=== PATIENT | female | born 1940 | race Caucasian/White ===

== ENCOUNTER 2021-02-07 10:29 | Outpatient (CLI) | payer MEDICARE, OTHER, SELFPAY ==
[2021-02-07 10:59] LABS: Anion Gap 9 mmol/L (8-16); Blood Urea Nitrogen 33 mg/dL (7-17); Calcium 9.6 mg/dL (8.4-10.2); Carbon Dioxide 25 mmol/L (22-30); Chloride 106 mmol/L (98-107); Estimated Glomerular Filt Rate 24; Glucose 75 mg/dL (65-105); Potassium 4.6 mmol/L (3.4-5.0); Sodium 140 mmol/L (137-145)
== END 2021-02-07 10:30 | disposition home or self-care (01) ==
LOC: ANHSURGERY 10:33
PROVIDERS: Anesthesiology; PCP Family Medicine; Visit Provider Obstetrics & Gynecology
DX: Z01.818 Encounter for other preprocedural examination (principal); I10 Essential (primary) hypertension
CPT/HCPCS: 36415; 80048

== ENCOUNTER 2021-02-12 01:25 | Day surgery (SDC) | payer MEDICARE, OTHER, SELFPAY ==
[2021-02-05 13:38] VITALS: BMI 22.8
--- NOTE | 2021-02-11 12:40 | P.PNAN_ITS ---
Anes - Initial Pre Proc Eval Procedure: Operation Date: 02/12/21 07:30 Proposed Procedures p Hysteroscopy,Dilation and Curettage - Meenu Brothers MD Date/Time: 02/11/21 12:40 Surgeon: Meenu Brothers MD Pre Op Diagnosis: post menopausal bleeding Patient Data Age: 80 Gender: F Height: 1.64 m Weight: 61.25 kg Allergies Allergy/AdvReac Type Severity Reaction Status Date / Time codeine Allergy Unknown Nausea and Verified 02/12/21 06:55 Vomiting Home Medications Medication Instructions Recorded Confirmed Type albuterol sulfate [ProAir HFA] 2 inh INHALATION PRN PRN 02/05/21 02/05/21 History aspirin [Adult Low Dose Aspirin] 81 mg PO HS 02/05/21 02/05/21 History calcium carbonate-vitamin D3 1 cap PO DAILY 02/05/21 02/05/21 History [Calcium 600 + D(3)] carbidopa-levodopa 1 tablet PO HS 02/05/21 02/05/21 History cholecalciferol (vitamin D3) 50 mcg PO DAILY 02/05/21 02/05/21 History furosemide 20 mg PO DAILY 02/05/21 02/05/21 History levothyroxine [Synthroid] 50 mcg PO DAILY 02/05/21 02/12/21 History lisinopril 40 mg PO DAILY 02/05/21 02/05/21 History abfechdqhnhf-xyuf-bpbei acid 1 tablet PO DAILY 02/05/21 02/05/21 History [Centrum Women] rosuvastatin [Crestor] 20 mg PO HS 02/05/21 02/05/21 History tramadol 100 mg PO BID 02/05/21 02/05/21 History Patient hx anesthesia problems: none Family hx anesthesia problems: none COUNT INCLUDES THE [facility] Past Medical History Medical History (Updated 02/12/21 @ 07:22 by Meenu Brothers MD) Dyspnea Hyperlipidemia Hypertension Hypothyroidism RLS (restless legs syndrome) Surgical History Surgical History (Updated 02/11/21 @ 12:40 by Sebastian Smith DO) History of cholecystectomy History of left mastectomy Social History Social History Smoking status: Never smoker Living arrangements: with family Spiritual care concerns: No Anes - Eval Final PreProcedure Day of Procedure 02/11/21 12:40 Patient weight: normal Heart: regular rate and rhythm Lungs: clear to auscultation and normal air movement Airway: Mallampati scale class III Neurological: alert and oriented Last oral intake: >/= 8 hours ASA classification: III Emergent: no Anesthetic plan: proceed Anesthesia type and monitoring: general GIVS and standard monitoring Informed Consent: The patient's anesthetic plan and its attendant risks and benefits were discussed with the patient/family/POA. Questions were solicited and answers provided to the satisfaction of the patient/family/POA.
[2021-02-12] MEDS: LACTATED RINGERS 1,000 ML 30 ML IV CONT (06:45)
[2021-02-12] MEDS: ACETAMINOPHEN 500 MG TABLET 1000 MG PO (06:47)
[2021-02-12 06:57] VITALS: BP 148/75; PULSE 90; RESP 18; TEMP 36.8; O2SAT 100
--- NOTE | 2021-02-12 07:19 | PM.IMHP ---
H&P: HPI History of Present Illness Date/Time: 02/12/21 07:19 Chief Complaint: PMB Narrative: Dionne is a 80yo with PMB, seen by me in Jul 2020, when EMB was challenging in office due to stenotic internal os. EMB was done, but only obtained endocervical cells. At that time HSC and D and C was recommended, and she finally scheduled it. . She had no further bleeding for several months, but recently returned which made her schedule procedure finally. US showed thickened endometrium with cystic changes. Review of Systems Review of Systems: All systems reviewed & are unremarkable except as noted in HPI and below PMFSH Past Medical History Medical History (Updated 02/12/21 @ 07:22 by Meenu Brothers MD) Dyspnea Hyperlipidemia Hypertension Hypothyroidism RLS (restless legs syndrome) Surgical History Surgical History (Updated 02/11/21 @ 12:40 by Sebastian Smith DO) History of cholecystectomy History of left mastectomy Social History Social History Smoking status: Never smoker Living arrangements: with family Spiritual care concerns: No Meds Home Medications and Allergies Home Medications Medication Instructions Recorded Confirmed Type albuterol sulfate [ProAir HFA] 2 inh INHALATION PRN PRN 02/05/21 02/05/21 History aspirin [Adult Low Dose Aspirin] 81 mg PO HS 02/05/21 02/05/21 History calcium carbonate-vitamin D3 1 cap PO DAILY 02/05/21 02/05/21 History [Calcium 600 + D(3)] carbidopa-levodopa 1 tablet PO HS 02/05/21 02/05/21 History cholecalciferol (vitamin D3) 50 mcg PO DAILY 02/05/21 02/05/21 History furosemide 20 mg PO DAILY 02/05/21 02/05/21 History levothyroxine [Synthroid] 50 mcg PO DAILY 02/05/21 02/12/21 History lisinopril 40 mg PO DAILY 02/05/21 02/05/21 History ejhbhzmfnopy-skzz-xcftg acid 1 tablet PO DAILY 02/05/21 02/05/21 History [Centrum Women] rosuvastatin [Crestor] 20 mg PO HS 02/05/21 02/05/21 History tramadol 100 mg PO BID 02/05/21 02/05/21 History Allergies Allergy/AdvReac Type Severity Reaction Status Date / Time codeine Allergy Unknown Nausea and Verified 02/12/21 06:55 Vomiting Vital Signs Vital Signs - 24 hr 02/12/21 06:57 Temperature 98.3 F Pulse Rate 90 Respiratory Rate 18 Blood Pressure 148/75 H Pulse Oximetry 100 Exam Const: General: no acute distress Resp: Effort & Inspection: normal respiratory effort Auscultation: clear to auscultation bilaterally Cardio: Rate: regular rate Rhythm: regular rhythm GI: GI Palp: Yes Soft to palpation Extrem: General: normal to inspection Assessment and Plan Assessment and plan (1) Postmenopausal bleeding: Code(s): N95.0 - Postmenopausal bleeding Status: Acute Additional Plan Plan for HSC D and C for PMB. DIscussed RBA, consented. Will proceed. She is aware of risk of uterine perforation given difficult cervix. she pretreated with cytotec last night PV.
--- NOTE | 2021-02-12 07:24 | WPDHPUPDATE1 ---
History and Physical Update Update Date/Time: 02/12/21 07:24 History and Physical has been reviewed, including an updated exam of the patient. There are NO changes in the patient's condition. Risks, benefits, and alternatives have been discussed and questions answered. Patient agrees to proceed with procedure.
[2021-02-12] MEDS: BUPIVACAINE/EPINEPHRINE 0.25% 10 ML VIAL INFILTRATE (07:46)
--- NOTE | 2021-02-12 08:00 | SUR.OPER ---
Ebl=5ml
--- NOTE | 2021-02-12 08:04 | P.OP_ITS ---
Procedure Note - Detailed Date of Procedure 02/12/21 Pre-op Diagnosis postmenopausal bleeding Post-op Diagnosis same Procedure Performed Hysteroscopy and dilation and curettage Surgeon Meenu Brothers MD Screen And Cyclone Repairer none Anesthesia MAC Indications PMB Findings normal uterine cavity Description of Procedure The patient was taken to the OR and placed in dorthal lithotomy in [facility]. She received MAC anesthesia. A speculum was placed and the cervix grasped with a single tooth tenaculum. 10cc of 0.25% marcaine with epinephrine was instilled in a paracervical block. The cervix was stenotic at both external and internal os. An os finder was used, then the cervix was sequentially dilated to accomodate a 5mm hysteroscope. The hysteroscope was inserted and the uterine cavity was visualized with the findings noted above. The hysteroscope was removed and a sharp curettage was performed, obtaining endometrial curettings to send to pathology. The tenaculum was removed and the cervix was made hemostatic with Monsel's solution and pressure. The speculum was removed. The patient tolerated the procedure well. Estimated Blood Loss 5 Drains No Packing No Pathology yes Complications No immediate complications Condition stable Disposition same day
[2021-02-12 08:06] VITALS: BP 125/63; PULSE 82; RESP 15; O2SAT 96
[2021-02-12 08:35] VITALS: BP 141/62; PULSE 70; RESP 20
[2021-02-12 08:55] VITALS: BP 159/67; PULSE 65; RESP 18
== END 2021-02-12 09:02 | disposition home or self-care (01) ==
PROVIDERS: PCP Family Medicine; Visit Provider Obstetrics & Gynecology
PROC: 0U5B8ZZ Destruction of Endometrium, Via Natural or Artificial Opening Endoscopic (ICD-10-PCS; CPT 58563; principal; 2021-02-12 07:30)
DX: N95.0 Postmenopausal bleeding (principal); N85.8 Other specified noninflammatory disorders of uterus; I10 Essential (primary) hypertension; E78.5 Hyperlipidemia, unspecified; E03.9 Hypothyroidism, unspecified; G25.81 Restless legs syndrome; Z79.51 Long term (current) use of inhaled steroids; Z79.82 Long term (current) use of aspirin
CPT/HCPCS: 58558; 88305; A9270; J2405; J2704; J3010; J7030; J7120

== ENCOUNTER 2022-11-03 14:55 | Outpatient (CLI) | payer MEDICARE, OTHER, SELFPAY ==
[2022-11-03 14:41] LABS: Basophils Absolute Auto 0.1 K/mm3 (0.0-0.1); Eosinophils Absolute Auto 0.4 K/mm3 (0-0.3); Eosinophils Percent Auto 8.4 % (0-4.4); Hematocrit 34.5 % (37.0-47.0); Hemoglobin 10.9 g/dL (12.0-15.0); Immature Granulocyte Absolute 0.01 K/mm3 (0.00-0.031); Immature Granulocyte Percent A 0.2 % (0-0.5); Lymphocytes Absolute Auto 1.44 K/mm3 (0.9-3.2); Lymphocytes Percent Auto 29.3 % (18.3-44.2); Mean Corpuscular HGB Conc 31.6 g/dl (32-36); Mean Corpuscular Hemoglobin 29.2 pg (26-34); Mean Corpuscular Volume 92.5 fl (80-100); Monocytes Absolute Auto 0.6 K/mm3 (0.1-0.6); Monocytes Percent Auto 11.8 % (2.6-8.5); Neutrophils Absolute Auto 2.4 K/mm3 (1.3-6.7); Neutrophils Percent Auto 49.3 % (45.5-73.1); Platelet Count Result 293 k/mm3 (150-375); Red Blood Count 3.73 M/mm3 (4.2-5.4); White Blood Count 4.9 K/mm3 (4.5-10.0)
--- NOTE | 2022-11-03 14:41 | ECG_ITS ---
Measurements Intervals Lawson Rate: 64 P: 35 CA: 194 QRS: 68 QRSD: 75 T: 72 QT: 393 QTc: 407 Interpretive Statements SINUS RHYTHM WITH SINUS ARRHYTHMIA BORDERLINE ST ABNORMALITY- ANTEROLATERAL LEADS BORDERLINE ECG NO PREVIOUS ECG AVAILABLE FOR COMPARISON Electronically Signed On 11-03-2022 15:44:00 CDT by Natanael Mendieta D.O.
[2022-11-03 14:50] LABS: Anion Gap 8 mmol/L (8-16); Blood Urea Nitrogen 30 mg/dL (7-17); Calcium 9.3 mg/dL (8.4-10.2); Carbon Dioxide 28 mmol/L (22-30); Chloride 103 mmol/L (98-107); Estimated Glomerular Filt Rate 25; Glucose 99 mg/dL (65-110); Potassium 4.9 mmol/L (3.4-5.0); Sodium 139 mmol/L (137-145)
[2022-11-03 15:31] LABS: Appearance Urine Cloudy (Clear); Bacteria Urine None Seen /hpf; Bilirubin Urine Negative (Negative); Blood Urine Negative (Negative); Color Urine Yellow (Yellow); Glucose Urine UA Negative (Negative); Hyaline Casts Urine Present /lpf; Ketones Urine Trace mg/dL (Negative); Leukocyte Esterase Ur 2+ LEU/UL (Negative); Need Manual Microscopic Reviewed; Nitrate Urine Negative (Negative); Non Pathogenic Casts >20; Protein Urine 1+ mg/dL (Negative); RBC Urine 0-2 /hpf (0-2); Specific Grav Ur 1.017 (1.001-1.035); Squamous Epithelial Cell Urine Moderate /hpf (Few); Urobilinogen Urine 0.2 mg/dL (<2.0)
[2022-11-03 15:41] LABS: Add Urine Microscopic? YES
== END 2022-11-03 14:56 | disposition home or self-care (01) ==
PROVIDERS: PCP Family Medicine; Visit Provider Orthopaedic Surgery
DX: M17.11 Unilateral primary osteoarthritis, right knee (principal); I10 Essential (primary) hypertension; R94.31 Abnormal electrocardiogram [ECG] [EKG]
CPT/HCPCS: 36415; 80048; 81001; 85025; 87086; 93005

== ENCOUNTER 2022-11-27 09:53 | Outpatient (CLI) | payer MEDICARE, OTHER, SELFPAY ==
[2022-11-27 11:15] LABS: Albumin Level 4.5 g/dL (3.5-5.1)
[2022-11-27 11:18] LABS: Urine Cotinine NEGATIVE
[2022-11-27 11:18] LABS: INR 1.1; Prothrombin Time 13.3 Seconds (11.1-14.7)
[2022-11-27 11:19] LABS: Hemoglobin A1C 5.3 % (<5.7); Partial Thromboplastin Time 28.6 SECONDS (22.3-36.8)
== END 2022-11-27 09:54 | disposition home or self-care (01) ==
LOC: ANHSURGERY 10:00
PROVIDERS: Visit Provider Orthopaedic Surgery
DX: M17.11 Unilateral primary osteoarthritis, right knee (principal); Z01.818 Encounter for other preprocedural examination
CPT/HCPCS: 80307; 82040; 83036; 85610; 85730; 86850; 86900; 86901; 86922; 87081

== ENCOUNTER 2022-12-09 02:11 | Day surgery (SDC) | payer MEDICARE, OTHER, SELFPAY ==
[2022-11-27 10:05] VITALS: BMI 22.7
--- NOTE | 2022-11-27 10:33 | PC.NURSE ---
Report to the Outpatient Waiting Room, entrance under the green pavilion located off [facility], at time ___0900____ on date 12/09/22 . Planned Procedure Time: _1100 . Time changes happen often and if your time is changed the preop area will call you the afternoon before. - You and your visitor will be asked to self-screen and do not enter if you have any COVID symptoms. - A mask is optional within the hospital at this time. Patients may have clear liquids (water, carbonated beverages, clear teas, apple juice) until 3 hours prior to surgery with a maximum of 20 ounces. - No food from midnight until time of surgery - Infants may have breast milk until 4 hours before surgery, formula 6 hours prior to surgery. - Children will be allowed to drink immediately following surgery. If applicable, please bring a bottle or sippy cup to assist with drinking. Juice, water, soda, and popsicles are readily available. For infants on formula, please bring formula the day of surgery. Pacifiers are allowed. Take the following medications with a SIP of water the morning of surgery: ____ANORO ELLIPTA INHALER,LEVOTHYROXINE DO NOT STOP ANY OF YOUR OTHER PRESCRIPTION MEDICATIONS PRIOR TO SURGERY ?EXCEPT THE FOLLOWING Medications to discontinue per physician ___ALL VITAMINS/SUPPLEMENTS 3 DAYS PRE OP.LAST DOSE 12/05/22 Please no make-up, nail anguillan, hairspray, perfume, deodorant, or body powder the day of surgery. No jewelry (including any body piercings) or valuables the day of surgery, leave them at home. Please take a shower or bath the night before, or the morning of, surgery with an antibacterial soap. Wear comfortable, loose fitting clothing. Children are encouraged to wear pajamas. - Jewelry must be removed prior to entering the operating room. Rings and piercings that are not removed may be cut off. - The hospital will not accept responsibility for valuables. - Please leave all valuables, including medications, at home the day of surgery. If you are going home after surgery, a licensed port cdl a driver must drive you home. - NO public transportation without another adult if you receive anesthesia. - We recommend that an adult stay with you for 24 hours following discharge. - We also recommend that you do not drive, make important decision, drink alcoholic beverages, or take any drugs that were not prescribed by your health care provider for at least 24 hours after your discharge time. For Pediatric surgeries, we recommend two adults accompany the child home. Follow any additional instructions given to you from your surgeon. If you or anyone in your household have experienced Covid symptoms in the past week, please notify your surgeon or the nurse liaison at the phone number below for possible testing. VERBAL AND WRITTEN instructions given to ___PATIENT and asked if any additional questions and then verbalized understanding. Patient advised to call surgeon office or pre surgery nurse liaison [phone] if any additional questions.
[2022-11-27 10:48] VITALS: BP 146/74; PULSE 74; RESP 18; TEMP 37; O2SAT 97
[2022-12-09] VITALS (14 sets, daily range): BP systolic 142–180; BP diastolic 65–92; PULSE 80–105; RESP 12–18; TEMP 36.1–36.9; O2SAT 96–100; BMI 23.1
--- NOTE | ~2022-12-09 | XR_ITS ---
EXAMINATION: [id number] DATE: 12/09/2022 10:29 INDICATION: Right total knee arthroplasty. Postop. TECHNIQUE: 2 views of right knee were obtained. COMPARISON: Right knee radiographs 11/02/2022 FINDINGS: There is a total right knee arthroplasty without patellar resurfacing in near-anatomic alig nment. There is an interference screw in the distal femur. No fracture. There is gas in the soft tiss ues, consistent with recent surgery. Anterior skin zaynab are noted. IMPRESSION: 1. Total right knee arthroplasty in near-anatomic alignment. Reviewed, dictated and finalized at location A.
[2022-12-09] MEDS: ACETAMINOPHEN 500 MG TABLET 1000 MG PO (06:18)
[2022-12-09] MEDS: LACTATED RINGERS 1,000 ML 30 ML IV CONT ×2 (06:25→10:07)
--- NOTE | 2022-12-09 06:56 | WPDANESEPPF ---
Anes - Initial Pre Proc Eval Procedure: Operation Date: 12/09/22 07:30 Proposed Procedures p Right Total Knee Arthroplasty with Hardware Removal Anterior Cruciate Ligament - Remington Bragg MD Date/Time: 12/09/22 06:56 Surgeon: Remington Bragg MD Pre Op Diagnosis: Rt Knee DJD, Prev ACL Reconstruction Patient Data Age: 82 Gender: F Height: 1.64 m Weight: 59.7 kg Last Vital Signs Temp 36.1 C L 12/09/22 06:36 Pulse 84 12/09/22 06:36 Resp 16 12/09/22 06:36 BP 180/82 H 12/09/22 06:36 Pulse Ox 97 12/09/22 06:36 O2 Del Method Room Air 12/09/22 06:36 Allergies Allergy/AdvReac Type Severity Reaction Status Date / Time codeine Allergy Unknown Nausea and Verified 11/30/22 09:45 Vomiting Home Medications Medication Instructions Recorded Confirmed Type albuterol sulfate 90 mcg/actuation 2 inh inhalation PRN PRN SOB 02/05/21 11/27/22 History aerosol inhaler (ProAir HFA) calcium carbonate 600 mg-vitamin 1 cap PO DAILY 02/05/21 12/09/22 History D3 5 mcg (200 unit) capsule (Calcium 600 + D(3)) carbidopa 25 mg-levodopa 100 mg 1 tablet PO HS RLS 02/05/21 12/09/22 History tablet cholecalciferol (vitamin D3) 50 50 mcg PO DAILY 02/05/21 12/09/22 History mcg (2,000 unit) tablet levothyroxine 50 mcg tablet 50 mcg PO DAILY 02/05/21 12/09/22 History (Synthroid) lisinopril 40 mg tablet 40 mg PO DAILY 02/05/21 12/09/22 History multivitamin-ferrous 1 tablet PO DAILY 02/05/21 12/09/22 History fumarate-folic acid 18 mg-400 mcg tablet (Centrum Women) rosuvastatin 20 mg tablet (Crestor) 20 mg PO HS 02/05/21 12/09/22 History tramadol 50 mg tablet 100 mg PO BID PAIN 02/05/21 12/09/22 History ferrous sulfate 325 mg (65 mg 325 mg PO DAILY 11/27/22 12/09/22 History iron) tablet (FeroSul) omeprazole 20 mg capsule,delayed 20 mg PO DAILY 11/27/22 12/09/22 History release umeclidinium 62.5 mcg-vilanterol 1 ea inhalation DAILY 11/27/22 12/09/22 History 25 mcg/actuation powdr for inhalation (Anoro Ellipta) Patient hx anesthesia problems: none Family hx anesthesia problems: none Results Review: All pre-operative results and documents have been reviewed as part of the pre-operative evaluation. [facility] Past Medical History Medical History COPD (chronic obstructive pulmonary disease) Decreased GFR Diastolic dysfunction Dyspnea Hyperlipidemia Hypertension Hypothyroidism Postmenopausal bleeding Right knee DJD RLS (restless legs syndrome) Surgical History Surgical History History of cholecystectomy History of left mastectomy Hx of reconstruction of anterior cruciate ligament tear Social History Social History Smoking status: Never smoker Additional smoking assessment comments: DENIES ANY FORM OF TOBACCO USE Living arrangements: with family Spiritual care concerns: No Anes - Eval Final PreProcedure Day of Procedure 12/09/22 06:56 Patient weight: normal Heart: regular rate and rhythm Lungs: decreased breath sounds Airway: Mallampati scale class II Neurological: alert and oriented Last oral intake: >/= 8 hours ASA classification: III Emergent: no Anesthetic plan: proceed Anesthesia type and monitoring: general LMA and standard monitoring Results Review: All pre-operative results and documents have been reviewed as part of the pre-operative evaluation. Informed Consent: The patient's anesthetic plan and its attendant risks and benefits were discussed with the patient/family/POA. Questions were solicited and answers provided to the satisfaction of the patient/family/POA.
[2022-12-09] MEDS: TRANEXAMIC ACID 1,000MG/ISO100 1,000 MG/100 ML BAG 200 MG IVPB (07:00)
--- NOTE | 2022-12-09 07:13 | SUR.PREOP ---
0710- Spoke with Dr. Connor about pt BP 184/81. HR: 71. No BP meds taken today. He stated BP will be watched during procedure and in PACU. No intervention at this time.
--- NOTE | 2022-12-09 07:15 | WPDHPUPDATE1 ---
History and Physical Update Update Date/Time: 12/09/22 07:15 History and Physical has been reviewed, including an updated exam of the patient. There are NO changes in the patient's condition. Risks, benefits, and alternatives have been discussed and questions answered. Patient agrees to proceed with procedure.
[2022-12-09] MEDS: ceFAZolin 2 GM/D5W 50 ML 2 GM/50 ML BAG IVPB ×3 (07:37→22:34)
--- NOTE | 2022-12-09 07:48 | WPDANESPNB ---
Anes - Peripheral Nerve Block Date/Time: 12/09/22 07:48 I have discussed with the patient/family/POA the placement of a peripheral nerve block for post-operative pain management, including associated risks, benefits, complications, and side effects. Alternative methods of post-operative analgesia were detailed. Questions were solicited and answers provided to the satisfaction of the patient/family/POA. Time-Out: A pre-procedural Time-Out was completed immediately before starting the procedure and confirmed: Patient Identification, Site, Procedure, Patient Position and the Availability of Requisite Equipment. Clinical Indications: Acute post-operative pain management requested by the operative surgeon. Nerve Block Insertion Note Anes-nerve block: adductor canal right Patient position: supine Skin prep: chlorhexidine Needle: 22 gauge, stimulating, insulated echogenic needle. Needle length: 80 mm Technique: ultrasound Technique comment: fent 100mcg Injectate: bupivacaine 0.5% with epi 5 mcg/ml (30ml no epi) and dexamethasone (mg) (4) Observations: tolerated well Complications: none Procedure start time:: 726 Procedure end time:: 733
[2022-12-09] MEDS: GENTAMICIN BONE CEMENT REFOBACIN 1 EACH TOPICAL (09:00)
[2022-12-09] MEDS: TRANEXAMIC ACID 1,000 MG/10 ML AMPUL 1000 MG IV PUSH (09:23)
--- NOTE | 2022-12-09 10:13 | W.PM.PROC2 ---
Procedure Note - Detailed Date of Procedure 12/09/22 Pre-op Diagnosis Rt Knee DJD, Retained hardware Post-op Diagnosis Same Procedure Performed R TKA, REMOVAL OF HARDWARE Surgeon Remington Bragg MD Anesthesia General Description of Procedure THE RIGHT KNEE WAS PREPPED AND DRAPED IN THE STERILE FASHION. THERE WAS A 10 DEGREE FLEXION CONTRACTURE. A MIDLINE SKIN INCISION WAS MADE. THE INCISION CONTINUED OVER THE OLD ACL RECONSTRUCTION INCISION. A MEDIAL PARAPATELLAR ARTHROTOMY WAS MADE. THE PATELLA WAS EVERTED. THERE WAS TRICOMPARTMENT DJD. DISSECTION CONTINUED TO THE MEDIAL PLATEAU. THE ACL SCREW WAS IDENTIFIED AND REMOVED IN ITS ENTIRETY. NEXT AN INTRAMEDULLARY STAS WAS PLACED IN THE FEMUR. A DISTAL FEMORAL CUT WAS MADE IN 5 DEGREES OF VALGUS REMOVING APPROXIMATELY 9 MM OF BONE FROM THE DISTAL FEMUR. THE FEMUR WAS SIZED TO 60. A FEMORAL CUTTING BLOCK WAS PLACED IN 3 DEGREES OF EXTERNAL ROTATION AND IN ALIGNMENT WITH MAURISIO'S LINE AND THE TRANSEPICONDYLAR AXIS. ANTERIOR POSTERIOR AND CHAMFER CUTS WERE MADE. THE CUTS WERE EXCELLENT. NEXT AN INTRAMEDULLARY CUTTING GUIDE WAS PLACED IN THE TIBIA. A TRANS TIBIAL CUT WAS MADE ALONG THE LONG AXIS OF THE TIBIA. APPROXIMATELY 10 MM OF BONE WAS REMOVED FROM THE HIGH SIDE OF THE TIBIA. THE TIBIA WAS THEN PLANED TO A SMOOTH SURFACE. POSTERIOR FEMORAL OSTEOPHYTES WERE REMOVED FROM THE FEMORAL CONDYLES. A 71 TIBIAL TRIAL WAS PLACED IN ALIGNMENT WITH THE 1/3 MEDIAL ASPECT OF THE TIBIAL TUBERCLE. THEN A 60 FEMORAL TRIAL COMPONENT WAS PLACED. BOTH HAD EXCELLENT FITS. EVENTUALLY A 10 MM CR POLYETHYLENE TRIAL COMPONENT WAS PLACED. THE KNEE WAS TAKEN THROUGH A RANGE OF MOTION. THE KNEE CAME OUT TO FULL EXTENSION. THERE WAS NO ABNORMAL TILT TO THE PATELLA. THERE WAS GOOD A/P AND VARUS/VALGUS STABILITY. THERE WAS NO EXCESSIVE ROLL BACK WITH FLEXION. THE TRIAL COMPONENTS WERE REMOVED. THEN A 60 FEMORAL COMPONENT AND 70 TIBIAL COMPONENT WITH A 10 CR POLYETHYLENE COMPONENT WERE CEMENTED INTO PLACE. ONCE THE CEMENT WAS HARD THE KNEE WAS TAKEN THROUGH A ROM AGAIN AND FOUND TO BE STABLE WITH NO PATELLA TILT NO EXCESSIVE ROLL BACK WITH FLEXION AND GOOD STABILITY WITH COMPLETE AND FULL EXTENSION. THE TIBIAL TUNNEL WAS BONE GRAFTED. THE KNEE WAS IRRIGATED WITH STERILE BETADINE AND WATER FOR ABOUT 3 MINUTES. THE BLEEDERS WERE CAUTERIZED. THE ARTHROTOMY WAS REPAIRED WITH NUMBER 1 VICRYL. THE SUB CUTANEOUS LAYER WITH 2-0 VICRYL AND THE SKIN WITH BENTON. THE WOUND WAS WASHED AND A STERILE DRESSING WAS APPLIED. PATIENT WAS EXTUBATED. Estimated Blood Loss -150.0 Pathology None sent Complications No immediate complications Condition Stable Disposition PACU
[2022-12-09] MEDS: fentaNYL CITRATE INJ (*CRX) 100 MCG/2 ML VIAL 25 MCG IV PUSH ×4 (10:19→10:38)
--- NOTE | 2022-12-09 13:05 | ADMGEN ---
This patient, Dionne Kaiser, was admitted to Medical Room 258-. Patient/family oriented to hospital policies and general routines including ID bracelet, bed and alarms, visiting hours, pain management, procedures, bathroom and other care routines, personal items, smoking policy, room service/diet, and visiting hours. Information on how to activate the Rapid Response Team has been discussed. Patient/Family are encouraged to report perceived risks to care and to ask questions if they do not understand what they are told or what they should do.
[2022-12-09] MEDS: oxyCODONE/ACETAMINOPHEN (*CRX) 5-325 MG TABLET 1 TABLET PO ×2 (14:01→19:55)
[2022-12-09] MEDS: CELECOXIB 200 MG CAPSULE PO (17:09)
[2022-12-09] MEDS: SENNA/DOCUSATE SODIUM TABLET 2 TAB PO (17:09)
[2022-12-09] MEDS: CARBIDOPA/LEVODOPA 25/100 MG TABLET 1 TABLET PO (19:54)
[2022-12-09] MEDS: ASPIRIN 325 MG ENTERIC TABLET PO (19:54)
[2022-12-09] MEDS: ROSUVASTATIN 10 MG TABLET 20 MG PO (19:55)
[2022-12-10 00:26] VITALS: BP 162/81; PULSE 80; RESP 16; TEMP 37.1; O2SAT 99
[2022-12-10 03:57] VITALS: BP 162/76; PULSE 83; RESP 16; TEMP 36.7; O2SAT 100
[2022-12-10] MEDS: diazePAM (*CRX) 5 MG TABLET PO (03:58)
[2022-12-10] MEDS: ACETAMINOPHEN 500 MG TABLET 1000 MG PO (03:59)
[2022-12-10 05:56] LABS: Basophils Percent Auto 0.3 % (0.2-1.2); Hematocrit 28.5 % (37.0-47.0); Immature Granulocyte Absolute 0.05 K/mm3 (0.00-0.031); Immature Granulocyte Percent A 0.4 % (0-0.5); Lymphocytes Absolute Auto 1.29 K/mm3 (0.9-3.2); Lymphocytes Percent Auto 11.6 % (18.3-44.2); Mean Corpuscular HGB Conc 31.6 g/dl (32-36); Mean Platelet Volume 9.2 fl (7.4-10.4); Monocytes Absolute Auto 1.1 K/mm3 (0.1-0.6); Neutrophils Absolute Auto 8.7 K/mm3 (1.3-6.7); Neutrophils Percent Auto 77.7 % (45.5-73.1); Platelet Count Result 313 k/mm3 (150-375); Red Cell Distribution Width 14.2 % (11.5-14.5); White Blood Count 11.2 K/mm3 (4.5-10.0)
[2022-12-10 06:02] LABS: Anion Gap 8 mmol/L (8-16); Blood Urea Nitrogen 36 mg/dL (7-17); Calcium 9.5 mg/dL (8.4-10.2); Carbon Dioxide 26 mmol/L (22-30); Chloride 106 mmol/L (98-107); Estimated CRCL calculation 17 ml/min; Estimated Glomerular Filt Rate 23; Glucose 129 mg/dL (65-110); Potassium 4.8 mmol/L (3.4-5.0); Sodium 140 mmol/L (137-145)
[2022-12-10] MEDS: ceFAZolin 2 GM/D5W 50 ML 2 GM/50 ML BAG IVPB (06:28)
[2022-12-10] MEDS: LEVOTHYROXINE SODIUM 50 MCG TABLET PO (06:28)
--- NOTE | 2022-12-10 07:40 | PM.PNORT ---
Progress Note: A&P Assessment and Plan (1) S/P total knee arthroplasty: Qualifiers: Laterality: right Qualified Code(s): Z96.651 - Presence of right artificial knee joint Code(s): Z96.659 - Presence of unspecified artificial knee joint Status: Acute Assessment and Plan: POD #1: Right TKA and removal of hardware Continue PT/OT. WBAT. Walker. HIGH FALL RISK. Continue pain control. Ice knee. Protect skin. DVT prophylaxis with Aspirin. SCDs. Incentive Spirometry Use reviewed. Monitor Dressing. Change prior to discharge. Bowel Regimen. Dispo: Home with Home Health pending progress with PT/OT today. (2) Decreased GFR: Code(s): R94.4 - Abnormal results of kidney function studies Status: Acute Assessment and Plan: Creatinine elevated in comparison to preoperative labs but at patient's baseline. She does follow with a clay pigeon loader. No further intervention at this time. Will order repeat BMP for HH to draw and contact clay pigeon loader if any acute changes. (3) COPD (chronic obstructive pulmonary disease): Code(s): J44.9 - Chronic obstructive pulmonary disease, unspecified Status: Acute (4) Diastolic dysfunction: Code(s): I51.89 - Other ill-defined heart diseases Status: Acute Time Spent With Patient Time with patient: less than 15 minutes Subjective Subjective Date/Time Seen: 12/10/22 07:40 Post Op day: 1 (Right TKA ) Interval history: POD #1: Right TKA Patient doing very well this morning. Pain well controlled. Worked with PT/OT and walked the hallways. She is also walking to and from the bathroom. She had difficulty sleeping and is hopeful for discharge home today. No new concerns. Review of Systems Review of Systems: All systems reviewed & are unremarkable except as noted in HPI and below Constitutional: Constitutional: Denies fever(s) and Denies headache(s) ENT: Denies headache(s) Cardiovascular: Cardiovascular: Denies chest pain, Denies diaphoresis, Denies palpitations and Denies dyspnea Respiratory: Respiratory: Denies dyspnea Gastrointestinal: Gastrointestinal: Denies abdominal pain, Denies constipation, Denies nausea and Denies vomiting Genitourinary: Genitourinary: Reports nocturia and Denies dysuria Musculoskeletal: Musculoskeletal: Reports arthralgias (Right Knee ) and Reports joint swelling (Right Knee ) Neurologic: Denies headache(s) Endocrine: Endocrine: Denies palpitations Exam Const: General: comfortable and no acute distress Resp: Effort & Inspection: normal respiratory effort Cardio: Rate: regular rate Rhythm: regular rhythm GI: GI Palp: Yes Soft to palpation, No Tenderness to palpation present (GI) and No Guarding due to palpation present (GI) Skin: General skin exam: wounds noted Wounds: wounds noted Other: Incision c/d/i. No surrounding redness/warmth. No hematoma. Mild ecchymosis. No wound dehiscence Neuro: Cognition (Neuro): normal cognition Other: NV intact aside from block. Moves toes. Sensation intact to light touch. +ankle dorsiflexion/plantarflexion. Extrem: Right lower extremity: normal to inspection, knee Details: tenderness (diffuse, mild ) Location: of the patella, swelling (diffuse, consistent with surgical intervention ), abnormal ROM Details: pain with active ROM during, pain with passive ROM during and with range as follows (limited due to recent surgical intervention ); able to extend lower leg actively and ecchymosis (mild ), lower leg (Negative Denny's Sign ) Details: normal to inspection; no erythema and no tenderness, ankle (+ankle dorsiflexion/plantarflexion ) Details: normal to inspection, no edema and normal ROM; no tenderness, no swelling and no ecchymosis and foot Details: normal capillary refill, normal to inspection, vascular exam Details: dorsalis pedis pulse present and motor-sensory exam Details: light-touch normal; no tenderness Left lower extremity: normal to ins
--- NOTE | 2022-12-10 07:45 | PM.DS ---
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 WBAT. Walker. HIGH FALL RISK. Continue pain control. Ice knee. Protect skin. DVT prophylaxis with Aspirin. SCDs. Incentive Spirometry Use reviewed. Monitor Dressing. Change prior to discharge. Bowel Regimen. Dispo: Home with Home Health pending progress with PT/OT today. (2) Decreased GFR: Code(s): R94.4 - Abnormal results of kidney function studies Status: Acute Assessment and Plan: Creatinine elevated in comparison to preoperative labs but at patient's baseline. She does follow with a sv[employer] business [employer]. No further intervention at this time. Will order repeat BMP for HH to draw and contact [employer] if any acute changes. (3) COPD (chronic obstructive pulmonary disease): Code(s): J44.9 - Chronic obstructive pulmonary disease, unspecified Status: Acute (4) Diastolic dysfunction: Code(s): I51.89 - Other ill-defined heart diseases Status: Acute DS: Summary Hospital Course Reason for hospitalization: Right TKA and removal of previous ACL reconstruction hardware by Dr. [facility] Course: 82 year old female admitted s/p Right TKA for postoperative medical management, pain control and mobilization with PT/OT. Patient progressed well with PT/OT. Pain and vitals remained stable throughout. The patient has been cleared to be discharged home with home health at this time. All discharge care instructions reviewed at depth. New medications reviewed. Follow up planned for 3 weeks in the outpatient orthopedic clinic with Dr. Bragg. Status at Discharge Functional status at discharge: uses cane/walker Overall status at discharge: patient is progressing back to baseline Time Spent with Patient Time attestation: Total time spent providing and/or coordinating discharge services: Exam Const: General: comfortable and no acute distress Resp: Effort & Inspection: normal respiratory effort Cardio: Rate: regular rate Rhythm: regular rhythm Skin: General skin exam: wounds noted Wounds: wounds noted Other: Incision c/d/i. No surrounding redness/warmth. No hematoma. Mild ecchymosis. No wound dehiscence Neuro: Cognition (Neuro): normal cognition Other: NV intact aside from block. Moves toes. Sensation intact to light touch. +ankle dorsiflexion/plantarflexion. Extrem: Right lower extremity: normal to inspection, knee Details: tenderness (diffuse, mild ) Location: of the patella, swelling (diffuse, consistent with surgical intervention ), abnormal ROM Details: pain with active ROM during, pain with passive ROM during and with range as follows (limited due to recent surgical intervention ); able to extend lower leg actively and ecchymosis (mild ), lower leg (Negative Denny's Sign ) Details: normal to inspection; no erythema and no tenderness, ankle (+ankle dorsiflexion/plantarflexion ) Details: normal to inspection, no edema and normal ROM; no tenderness, no swelling and no ecchymosis and foot Details: normal capillary refill, normal to inspection, vascular exam Details: dorsalis pedis pulse present and motor-sensory exam Details: light-touch normal; no tenderness Left lower extremity: normal to inspection Psych: Mental Status: mental status grossly normal DS: Data Data Completed and Pending Labs on day of discharge: Labs from last 24 hours 12/10/22 05:25 WBC 11.2 H RBC 3.00 L Hgb 9.0 L Hct 28.5 L MCV 95.0 MCH 30.0 MCHC 31.6 L RDW 14.2 Plt Count 313 MPV 9.2 Immature Gran % (Au
[2022-12-10 08:34] VITALS: BP 132/71; PULSE 92
[2022-12-10] MEDS: CELECOXIB 200 MG CAPSULE PO (08:36)
[2022-12-10] MEDS: FERROUS SULFATE 324 MG TABLET PO (08:36)
[2022-12-10] MEDS: SENNA/DOCUSATE SODIUM TABLET 2 TAB PO (08:38)
[2022-12-10] MEDS: CHOLECALCIFEROL 1,000 UNITS TABLET 2000 UNITS PO (08:38)
[2022-12-10] MEDS: lisinopriL 20 MG TABLET 40 MG PO (08:38)
[2022-12-10] MEDS: PANTOPRAZOLE 40 MG TABLET PO (08:39)
[2022-12-10] MEDS: FAMOTIDINE 20 MG TABLET PO (09:49)
[2022-12-10] MEDS: ASPIRIN 325 MG ENTERIC TABLET PO (09:49)
[2022-12-10 10:00] VITALS: BP 154/64; PULSE 97; RESP 17; TEMP 36.6; O2SAT 100
== END 2022-12-10 11:20 | disposition home health service (06) ==
LOC: ANHSURGERY 05:51 → ANH2MED 12:22
PROVIDERS: Visit Provider Orthopaedic Surgery
PROC: (CPT 27447; principal; 2022-12-09 07:30)
DX: M17.11 Unilateral primary osteoarthritis, right knee (principal); R94.4 Abnormal results of kidney function studies; G89.18 Other acute postprocedural pain; J44.9 Chronic obstructive pulmonary disease, unspecified; E78.5 Hyperlipidemia, unspecified; E03.9 Hypothyroidism, unspecified; G25.81 Restless legs syndrome; I11.9 Hypertensive heart disease without heart failure; Z79.51 Long term (current) use of inhaled steroids
CPT/HCPCS: 27447; 64447; 36415; 73560; 80048; 85025; 97110; 97116; 97161; 97165; 97530; 97535; A9270; C1713; C1776; J0171; J0690; J1100; J1885; J2270; J2704; J2795; J3010; J7120